=== PATIENT | male | born 1990 | race Caucasian/White ===

== ENCOUNTER 2017-11-18 13:35 | Emergency (ER) | payer SELFPAY ==
[2017-11-18 14:41] VITALS: BP 147/88
--- NOTE | 2017-11-18 14:41 | ER Document Report ---
ED Oral Problem - General Chief Complaint: Mouth Problem Stated Complaint: TONGUE PAIN Time Seen by Provider: 11/18/17 14:36 Mode of Arrival: Ambulatory Information source: Patient Notes: 27-year-old male presented ED for complaint of concerned because he had something to looked different on his tongue. He had nothing unusual on his tongue. Patient alert and oriented respirations regular and nonlabored speaking in full sentences walking with a even steady gait. She states she was very anxious because he smokes and he thought he had throat cancer because he had a white spot on his tongue. There is no spots on his tongue. Patient denied any pain or discomfort to his tongue. TRAVEL OUTSIDE OF THE [place] IN LAST 30 DAYS: No - HPI Patient complains to provider of: Other Onset: Other - States he thought he had tongue cancer because he saw a white spot no white spot noted Quality of pain: No pain - Couple days Severity: None Pain Level: Denies Associated symptoms: Other - Concerned that he had tongue cancer because he thought he saw a white spot on his tongue Relieved by: Nothing Similar symptoms previously: No Recently seen / treated by doctor/dentist: No - Related Data Allergies/Adverse Reactions: No Known Allergies Allergy (Verified 11/18/17 13:37) Past Medical History - General Information source: Patient - Social History Smoking Status: Current Every Day Smoker Cigarette use (# per day): Yes - Half pack a day Chew tobacco use (# tins/day): No Smoking Education Provided: Yes - 4 minutes Frequency of alcohol use: None Drug Abuse: None Family History: Reviewed & Not Pertinent Patient has suicidal ideation: No Patient has homicidal ideation: No - Past Medical History Cardiac Medical History: Reports: Hx Hypertension Pulmonary Medical History: Reports: None EENT Medical History: Reports: None Neurological Medical History: Reports: None Endocrine Medical History: Reports: None Renal/ Medical History: Reports: None Malignancy Medical History: Reports None GI Medical History: Reports: None Musculoskeltal Medical History: Reports Hx Musculoskeletal Deformity Skin Medical History: Reports None Psychiatric Medical History: Reports: Hx Anxiety Traumatic Medical History: Reports: None Infectious Medical History: Reports: None Past Surgical History: Reports: Hx Orthopedic Surgery - Hip surgery as a child Review of Systems - Review of Systems Constitutional: No symptoms reported EENT: Other - Concerned that he saw a white spot on his tongue no pain on his tongue just concerned that he had tongue cancer Cardiovascular: No symptoms reported Respiratory: No symptoms reported Gastrointestinal: No symptoms reported Genitourinary: No symptoms reported Male Genitourinary: No symptoms reported Musculoskeletal: No symptoms reported Skin: No symptoms reported Hematologic/Lymphatic: No symptoms reported Neurological/Psychological: No symptoms reported Physical Exam - Vital signs Vitals: Temp Pulse Resp BP Pulse Ox 99.0 F 118 H 19 166/81 H 100 11/18/17 13:44 11/18/17 13:44 11/18/17 13:44 11/18/17 13:44 11/18/17 13:44 Interpretation: Normal - Notes Notes: Patient came in very concerned that he had tongue cancer because he thought he saw a white spot on his tongue and he felt some bumps on the back of his thumb. Patient was informed these were normal spots to his tongue there was no white spots and no obvious deformities to his tongue. Patient was instructed to follow-up with a oral surgeon if he continued to think he had a problem with his tongue. - General General appearance: Appears well, Alert - HEENT Head: Normocephalic, Atraumatic Eyes: Normal Pupils: PERRL - Respiratory Respiratory status: No respiratory distress Chest status: Nontender Breath sounds: Normal Chest palpation: Normal - Cardiovascular Rhythm: Regular Heart sounds: Normal auscultation Murmur: No - Abdominal Inspection: Normal Distension: No distension Bowel sounds: Normal Tenderness: Nontender Organomegaly: No organomegaly - Back Back: Normal, Nontender - Extremities General upper extremity: Normal inspection, Nontender, Normal color, Normal ROM , Normal temperature General lower extremity: Normal inspection, Nontender, Normal color, Normal ROM , Normal temperature, Normal weight bearing. No: Saundar's sign - Neurological Neuro grossly intact: Yes Cognition: Normal Orientation: AAOx4 Robbin Coma Scale Eye Opening: Spontaneous [place] Coma Scale Verbal: Oriented Rob[place] Coma Scale Motor: Obeys Commands [place] Coma Scale Total: 15 Speech: Normal Motor strength normal: LUE, RUE, LLE, RLE Sensory: Normal - Psychological Associated symptoms: Normal affect, Normal mood - Skin Skin Temperature: Warm Skin Moisture: Dry Skin Color: Normal Course - Vital Signs Vital signs: Temp Pulse Resp BP Pulse Ox 98.4 F 93 14 147/88 H 98 11/18/17 14:39 11/18/17 14:39 06/26/18 14:39 11/18/17 14:39 11/18/17 14:39 Discharge - Discharge Clinical Impression: Normal tongue exam Condition: Stable Disposition: HOME, SELF-CARE Additional Instructions: Your exam showed a normal tongue with no ulcers no sores no whiteness no swelling. You continue to have concerned about your tongue please follow-up with your dentist or an oral surgeon FOLLOW-UP CARE: If you have been referred to a physician for follow-up care, call the physician s office for an appointment as you were instructed or within the next two days. If you experience worsening or a significant change in your symptoms, notify the physician immediately or return to the Emergency Department at any time for re-evaluation. Forms: Elevated Blood Pressure, Smoking Cessation Education Referrals: LARISA RICE DDS [ACTIVE STAFF] - Follow up as needed
== END 2017-11-18 14:42 | disposition home or self-care (01) ==
LOC: ER 13:35
DX: K13.79 Other lesions of oral mucosa (principal); F17.210 Nicotine dependence, cigarettes, uncomplicated
CPT/HCPCS: 99282; 99406

== ENCOUNTER 2017-12-17 19:53 | Emergency (ER) | payer SELFPAY ==
[2017-12-17] MEDS ORDERED: ASPIRIN 81 MG TABLET, CHEWABLE PO ONE (20:47)
--- NOTE | 2017-12-17 21:21 | ER Document Report ---
ED Cardiac - General Chief Complaint: Anxiety Stated Complaint: CHEST PAIN Time Seen by Provider: 12/17/17 20:46 Mode of Arrival: Ambulatory Information source: Patient Notes: Patient presents with complaint of chest pain, possible anxiety attack and is requesting an EKG at the front window cashier. TRAVEL OUTSIDE OF THE [place] IN LAST 30 DAYS: No - Related Data Allergies/Adverse Reactions: No Known Allergies Allergy (Verified 11/18/17 13:37) Past Medical History - Social History Smoking Status: Never Smoker Frequency of alcohol use: None Drug Abuse: None Family History: Reviewed & Not Pertinent - Past Medical History Cardiac Medical History: Reports: Hx Hypertension Renal/ Medical History: Denies: Hx Peritoneal Dialysis Musculoskeletal Medical History: Reports Hx Musculoskeletal Deformity Psychiatric Medical History: Reports: Hx Anxiety Past Surgical History: Reports: Hx Orthopedic Surgery - Hip surgery as a child Review of Systems - Review of Systems Constitutional: No symptoms reported EENT: No symptoms reported Cardiovascular: See HPI Respiratory: No symptoms reported Gastrointestinal: No symptoms reported Genitourinary: No symptoms reported Male Genitourinary: No symptoms reported Musculoskeletal: No symptoms reported Skin: No symptoms reported Hematologic/Lymphatic: No symptoms reported Neurological/Psychological: No symptoms reported Physical Exam - Notes Notes: PHYSICAL EXAMINATION: GENERAL: Well-appearing, well-nourished, very anxious. HEAD: Atraumatic, normocephalic. EYES: Pupils equal round and reactive to light, extraocular movements intact, sclera anicteric, conjunctiva are normal. NECK: Normal range of motion. LUNGS: Refused. HEART: Refused. ABDOMEN: Refused. Musculoskeletal: Normal range of motion. No cyanosis. NEUROLOGICAL: Normal speech, normal gait. PSYCH: Anxious. SKIN: Warm, Dry, normal turgor, no rashes or lesions noted. Course - Re-evaluation Re-evalutation: 12/17/17 21:10 Extensive time spent at bedside with patient's nurse in an attempt to perform a physical assessment on this patient. Patient very adamant that the tech upfront told him that his EKG was fine, and he wants to leave without further workup. Patient's EKG was a sinus tachycardia with a rate of 138, normal axis with no ST segment elevations or depressions. Patient refused any physical exam , patient refused height and weight, patient refused vital signs. Patient reports he has a long-standing history of anxiety, patient reports he is obsessed with his heart rate, patient reports he checks his heart rate at least 20 times a day. Patient reports that he does not want any more workup because "my EKG is fine". I explained to the patient that his EKG shows a significantly elevated heart rate of 138, and that without a physical examination I cannot appropriately discharge him. Multiple attempts to have patient allow us to perform a set of vital signs were unsuccessful. Patient reports he has been seen by his primary care provider for this recently who referred him to a psychiatric clinic for which he has not followed up. Patient did finally let the nurse check a manual pulse at the bedside which was 105, patient declined any further workup or physical examination, patient declined to sign AMA paperwork, patient ambulated out of the emergency department with a steady gait. Discharge - Discharge Clinical Impression: Tachycardia Disposition: AGAINST MEDICAL ADVICE Instructions: Anxiety ([facility])
--- NOTE | 2017-12-17 23:03 | EKG REPORT ---
SEVERITY:- OTHERWISE NORMAL ECG - SINUS TACHYCARDIA : Confirmed by: Valeri Covington MD 17-Dec-2017 23:02:53
== END 2017-12-17 21:35 | disposition left against medical advice (07) ==
LOC: ER 19:53
DX: F41.9 Anxiety disorder, unspecified (principal); R00.0 Tachycardia, unspecified; R07.9 Chest pain, unspecified; I10 Essential (primary) hypertension; Z53.29 Procedure and treatment not carried out because of patient's decision for other reasons
CPT/HCPCS: 93005; 93010; 99283